=== PATIENT | male | born 1980 | race Caucasian/White ===

== ENCOUNTER 2021-04-13 05:14 | Emergency (ER) | payer MEDICAID ==
[~2021-04-13] VITALS: Ht 167.6 cm; Wt 77.3 kg
[~2021-04-13 05:14] MED LIST: ASCOL; CIPR500T87 PO; DICY10CA53 PO; MESA800T2 PO; METR500T; ONDA4TAB7 PO; PANT40TA3 PO; PRED5TAB PO; SERT25TA PO; TRAZ-175 PO
--- NOTE | 2021-04-13 05:15 | NUR ---
PT BIBA FROM HOME, PT COMPLAINING OF ABDOMINAL PAIN ASSOCIATTED WITH N/V, PT STATES HE IS HAVING 10/10 PAIN, PT NON COMPLIANT WITH DISEASE PROCESS, PT STATES THIS HAS BEEN GOING ON FOR 4 DAYS NOW, PT AMBULATED TO THE ROOM, PT HOLDING HIS STOMACH AND HUNCHED OVER WHILE WALKING
[2021-04-13] MEDS ORDERED: FAMOTIDINE 20 MG/2 ML IVPush ONE (05:30)
[2021-04-13] MEDS ORDERED: SODIUM CHLORIDE 0.9% 1,000ML IVBOLUS ONE (05:30)
[2021-04-13] MEDS ORDERED: SODIUM CHLORIDE FLUSH 10ML SYR IVF ONE (05:30)
[2021-04-13] MEDS ORDERED: ONDANSETRON 2MG/ML, 2ML IVPush ONE (05:30)
[2021-04-13] MEDS ORDERED: FAMOTIDINE 20 MG/2 ML ONE (05:34)
[2021-04-13] MEDS ORDERED: ONDANSETRON 2MG/ML, 2ML ONE (05:34)
[2021-04-13] MEDS ORDERED: MORPHINE SULFATE 4 MG/ML, 1ML ONE ×2 (05:34→06:05)
[2021-04-13] MEDS: MORPHINE SULFATE 4 MG/ML, 1ML IVPush PRN ×2 (05:36→06:07)
[2021-04-13 05:58] LABS: BASOPHILS % (AUTO) 1 % (0-1); EOSINOPHILS % (AUTO) 1 % (1-7); LYMPHOCYTES % (AUTO) 26 % (22-44); MEAN CORPUSCULAR HEMOGLOBIN 28.4 pg (27.5-34.5); MEAN CORPUSCULAR HGB CONC 33.6 g/dL (33.2-36.2); MEAN PLATELET VOLUME 7.3 fL (7.4-10.4); MONOCYTES % (AUTO) 9 % (2-9); NEUTROPHILS % (AUTO) 63 % (42-75); PLATELET COUNT 390 x10^3/uL (130-400); RED BLOOD COUNT 5.18 x10^6/uL (4.38-5.82); RED CELL DISTRIBUTION WIDTH 14.5 % (9.4-14.8)
[2021-04-13 06:06] LABS: ALANINE AMINOTRANSFERASE 21 U/L (12-78); ALBUMIN 3.3 g/dL (3.4-5.0); ANION GAP 6 mmol/L (5-15); CALCIUM 9.3 mg/dL (8.5-10.1); CHLORIDE 107 mmol/L (98-107); CREATININE 0.99 mg/dL (0.7-1.3)
--- NOTE | 2021-04-13 06:06 | NUR ---
REPORT GIVEN TO NICKIE QUAN
[2021-04-13 06:07] LABS: ALKALINE PHOSPHATASE 90 U/L (45-117); BILIRUBIN,TOTAL 0.5 mg/dL (0.2-1.0); TOTAL PROTEIN 7.3 g/dL (6.4-8.2)
[2021-04-13] MEDS ORDERED: KETOROLAC 30 MG/1 ML IVPush ONE (07:00)
[2021-04-13 07:06] VITALS: BP 119/78
== END 2021-04-13 07:08 | disposition home or self-care (01) ==
LOC: ED 06:28
DX: R10.84 Generalized abdominal pain (principal); K59.00 Constipation, unspecified; Z87.19 Personal history of other diseases of the digestive system; R94.31 Abnormal electrocardiogram [ECG] [EKG]; K21.9 Gastro-esophageal reflux disease without esophagitis; Z90.89 Acquired absence of other organs; Z90.49 Acquired absence of other specified parts of digestive tract
CPT/HCPCS: 36415; 74022; 80053; 83605; 83690; 85025; 93005; 96361; 96374; 96375; 96376; 99285; J2270; J2405; J7030

== ENCOUNTER 2021-04-18 13:25 | Emergency (ER) | payer MEDICAID ==
[~2021-04-18] VITALS: Ht 167.6 cm; Wt 77.5 kg
[2021-04-18] MEDS ORDERED: ONDANSETRON 2MG/ML, 2ML ONE (13:57)
[2021-04-18] MEDS ORDERED: MORPHINE SULFATE 4 MG/ML, 1ML ONE ×2 (13:58→15:22)
[2021-04-18] MEDS ORDERED: FAMOTIDINE 20 MG/2 ML ONE (13:58)
[2021-04-18 14:02] LABS: BASOPHILS % (AUTO) 1 % (0-1); EOSINOPHILS % (AUTO) 1 % (1-7); LYMPHOCYTES % (AUTO) 24 % (22-44); MEAN CORPUSCULAR HEMOGLOBIN 28.2 pg (27.5-34.5); MEAN PLATELET VOLUME 7.4 fL (7.4-10.4); MONOCYTES % (AUTO) 10 % (2-9); NEUTROPHILS % (AUTO) 65 % (42-75); PLATELET COUNT 338 x10^3/uL (130-400); RED BLOOD COUNT 5.01 x10^6/uL (4.38-5.82)
[2021-04-18] MEDS: MORPHINE SULFATE 4 MG/ML, 1ML IVPush PRN ×2 (14:02→15:24)
--- NOTE | 2021-04-18 14:09 | NUR ---
THIS IS A 40 YO M BIB EMS FROM HOME W/ C/O BILAT UPPR QUAD ABD PAIN, N/V/D X24 HOURS. PT REPORTS HX OF CHRONS. 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 PER EMS PT RECEIVED 100MCG FENTANYL, 4MG ZOFRAN AND 500ML NS (DC UPON ARRIVAL). PT MEDICATED PER EMAR. PROVIDED URINAL AND EDUCATED ON NEED FOR SAMPLE. RESTING ON GURNEY W/ CALL LIGHT IN REACH, RESP EVEN AND UNLABORED, NADN.
[2021-04-18 14:11] LABS: ALANINE AMINOTRANSFERASE 16 U/L (12-78); ALBUMIN 2.9 g/dL (3.4-5.0); ANION GAP 7 mmol/L (5-15); CALCIUM 8.4 mg/dL (8.5-10.1); CHLORIDE 110 mmol/L (98-107); CREATININE 0.98 mg/dL (0.7-1.3)
[2021-04-18 14:13] LABS: ALKALINE PHOSPHATASE 96 U/L (45-117); BILIRUBIN,TOTAL 0.2 mg/dL (0.2-1.0); TOTAL PROTEIN 6.8 g/dL (6.4-8.2)
[2021-04-18] MEDS ORDERED: FAMOTIDINE 20 MG/2 ML IVPush ONE (14:30)
[2021-04-18] MEDS ORDERED: ONDANSETRON 2MG/ML, 2ML IVPush ONE (14:30)
[2021-04-18] MEDS ORDERED: SODIUM CHLORIDE 0.9% 1,000ML IVBOLUS ONE (14:30)
[2021-04-18] MEDS ORDERED: OMNIPAQUE 350 MG/ML, 100ML BOTTLE ONE (15:05)
[2021-04-18 15:14] LABS: MICROSCOPIC NOT IND
[2021-04-18 15:56] VITALS: BP 116/75
--- NOTE | 2021-04-18 16:12 | NUR ---
Patient/Caregiver given discharge instructions and they have confirmed that they understand the instructions. Patient ambulatory with steady gait.
--- NOTE | 2021-04-18 16:12 | NUR ---
Provide patient taxi cab voucher patient.
== END 2021-04-18 16:14 | disposition home or self-care (01) ==
LOC: ED 14:26
DX: K52.9 Noninfective gastroenteritis and colitis, unspecified (principal)
CPT/HCPCS: 36415; 74177; 80053; 81003; 83690; 85025; 96361; 96374; 96375; 96376; 99285; J2270; J2405; J7030; Q9967

== ENCOUNTER 2021-04-20 02:43 | Emergency (ER) | payer MEDICAID ==
[~2021-04-20] VITALS: Ht 172.7 cm; Wt 90.0 kg
[2021-04-20] MEDS ORDERED: SODIUM CHLORIDE FLUSH 10ML SYR IVF ONE (03:00)
[2021-04-20] MEDS ORDERED: ONDANSETRON 2MG/ML, 2ML IVPush ONE (03:00)
--- NOTE | 2021-04-20 03:03 | NUR ---
xray delay: pt stated unable to perform exam till medicated
[2021-04-20] MEDS ORDERED: ONDANSETRON 2MG/ML, 2ML ONE (03:06)
[2021-04-20] MEDS ORDERED: MORPHINE SULFATE 4 MG/ML, 1ML ONE ×2 (03:07→04:09)
[2021-04-20] MEDS: MORPHINE SULFATE 4 MG/ML, 1ML IVPush PRN ×2 (03:09→04:13)
--- NOTE | 2021-04-20 03:13 | NUR ---
PT. MEDICATED PER OCT FOR 03/28 PAIN.
[2021-04-20 03:15] LABS: BASOPHILS % (AUTO) 0 % (0-1); EOSINOPHILS % (AUTO) 1 % (1-7); LYMPHOCYTES % (AUTO) 27 % (22-44); MEAN CORPUSCULAR HEMOGLOBIN 28.3 pg (27.5-34.5); MEAN CORPUSCULAR HGB CONC 33.1 g/dL (33.2-36.2); MEAN PLATELET VOLUME 7.3 fL (7.4-10.4); MONOCYTES % (AUTO) 9 % (2-9); NEUTROPHILS % (AUTO) 63 % (42-75); PLATELET COUNT 295 x10^3/uL (130-400); RED BLOOD COUNT 4.86 x10^6/uL (4.38-5.82); RED CELL DISTRIBUTION WIDTH 15.2 % (9.4-14.8)
[2021-04-20 03:31] LABS: ALANINE AMINOTRANSFERASE 22 U/L (12-78); ALBUMIN 2.7 g/dL (3.4-5.0); ANION GAP 5 mmol/L (5-15); CALCIUM 8.7 mg/dL (8.5-10.1); CHLORIDE 107 mmol/L (98-107); CREATININE 0.97 mg/dL (0.7-1.3)
[2021-04-20 03:33] LABS: ALKALINE PHOSPHATASE 94 U/L (45-117); BILIRUBIN,TOTAL 0.2 mg/dL (0.2-1.0); TOTAL PROTEIN 6.6 g/dL (6.4-8.2)
--- NOTE | 2021-04-20 03:53 | NUR ---
PT. STATES "THE PAIN WENT DOWN FOR A MINUTE BUT IT'S BACK UP TO AN 8 NOW." PT. UNABLE TO PROVIDE URINE SAMPLE AT THIS TIME.
--- NOTE | 2021-04-20 04:13 | NUR ---
2ND DOSE OF MORPHINE ADMIN FOR CONTINUED PAIN. PT. ABLE TO URINATE PRIOR TO PAIN MEDS.
[2021-04-20 04:22] LABS: MICROSCOPIC NOT IND
--- NOTE | 2021-04-20 05:05 | NUR ---
PT. RESTING ON GURNEY WITH EYES CLOSED; WOKE FROM SLEEP TO VERBAL. PT. REPORTS PAIN CONTINUES AT 8/10. "IT WON'T GO DOWN PAST AN 8 FOR SOME REASON." CHART UP FOR RECHECK BY ERP.
[2021-04-20 06:06] VITALS: BP 122/77
--- NOTE | 2021-04-20 06:12 | NUR ---
PT. BECAME VERY VERBALLY AGRESSIVE WITH THIS RN UPON DISCUSSING D/C PAPERWORK. "THERE IS NO WAY I AM CONSTIPATED I HAVE BEEN GOING EVERY DAY. THIS IS BULL SHIT AND I AM JUST GOING TO END UP RIGHT BACK IN HERE." PT. WALKED TO D/C DESK AND SHOWN HOW TO CALL [facility] FOR [facility] D/C HOME. MD WAS ALREADY IN TO DISCUSS D/C PLAN WITH PT.
== END 2021-04-20 06:13 | disposition home or self-care (01) ==
LOC: ED 03:41
DX: K59.00 Constipation, unspecified (principal); R10.84 Generalized abdominal pain; F17.210 Nicotine dependence, cigarettes, uncomplicated
CPT/HCPCS: 36415; 74022; 80053; 81003; 83690; 85025; 96374; 96375; 96376; 99285; 99406; J2270; J2405

== ENCOUNTER 2021-04-27 15:25 | Emergency (ER) | payer MEDICAID ==
[~2021-04-27] VITALS: Ht 167.6 cm; Wt 77.5 kg
--- NOTE | 2021-04-27 15:57 | NUR ---
THIS IS A 40 YO M BIB EMS FROM HOME W/ C/O ABD PAIN STARTING AT 0600AM THIS MORNING. PT REPORTS HX OF CHRONS. PER EMS PT MEDICATED W/ 7MG MORPHINE PATIENT COORDINATOR FRONT DESK. PIV PATIENT COORDINATOR FRONT DESK. PT RESTING ON GURNEY W/ CALL LIGHT IN REACH AND SIDE RAILS UPX2. RESP EVEN AND UNLABORED, NADN. AWAITING ED EVAL.
[2021-04-27] MEDS ORDERED: MORPHINE SULFATE 4 MG/ML, 1ML ONE ×2 (16:19→17:18)
[2021-04-27] MEDS ORDERED: ONDANSETRON 2MG/ML, 2ML ONE (16:19)
[2021-04-27] MEDS ORDERED: FAMOTIDINE 20 MG TABLET ONE (16:19)
[2021-04-27] MEDS: MORPHINE SULFATE 4 MG/ML, 1ML IVPush PRN ×2 (16:25→17:19)
[2021-04-27] MEDS ORDERED: SODIUM CHLORIDE FLUSH 10ML SYR IVF ONE (16:30)
[2021-04-27] MEDS ORDERED: SODIUM CHLORIDE 0.9% 1,000ML IVBOLUS ONE (16:30)
[2021-04-27] MEDS ORDERED: ONDANSETRON 2MG/ML, 2ML IVPush ONE (16:30)
--- NOTE | 2021-04-27 16:33 | NUR ---
PT MEDICATED PER EMAR.
[2021-04-27 16:46] LABS: BASOPHILS % (AUTO) 1 % (0-1); EOSINOPHILS % (AUTO) 1 % (1-7); LYMPHOCYTES % (AUTO) 23 % (22-44); MEAN CORPUSCULAR HEMOGLOBIN 28.3 pg (27.5-34.5); MEAN CORPUSCULAR HGB CONC 32.7 g/dL (33.2-36.2); MEAN PLATELET VOLUME 7.8 fL (7.4-10.4); MONOCYTES % (AUTO) 9 % (2-9); NEUTROPHILS % (AUTO) 67 % (42-75); PLATELET COUNT 293 x10^3/uL (130-400); RED BLOOD COUNT 4.98 x10^6/uL (4.38-5.82)
[2021-04-27 16:49] LABS: ALBUMIN 2.9 g/dL (3.4-5.0); CALCIUM 8.5 mg/dL (8.5-10.1)
[2021-04-27 16:52] LABS: ALANINE AMINOTRANSFERASE 19 U/L (12-78); ALKALINE PHOSPHATASE 87 U/L (45-117); BILIRUBIN,TOTAL 0.3 mg/dL (0.2-1.0); CREATININE 0.86 mg/dL (0.7-1.3); TOTAL PROTEIN 6.6 g/dL (6.4-8.2)
[2021-04-27 16:58] LABS: ANION GAP 4 mmol/L (5-15); CHLORIDE 109 mmol/L (98-107)
--- NOTE | 2021-04-27 18:00 | NUR ---
ALL TESTS RESULTED. PT IS UP FOR RECHECK AT THIS TIME.
--- NOTE | 2021-04-27 19:00 | NUR ---
RECEIVED REPORT FROM ZEINA QUAN. ASSUMING CARE AT THIS TIME. CHART UP FOR RECHECK.
[2021-04-27 20:43] VITALS: BP 128/72
== END 2021-04-27 20:45 | disposition home or self-care (01) ==
LOC: ED 19:50
DX: K50.10 Crohn's disease of large intestine without complications (principal); K21.9 Gastro-esophageal reflux disease without esophagitis; F17.210 Nicotine dependence, cigarettes, uncomplicated; Z88.5 Allergy status to narcotic agent; Z88.6 Allergy status to analgesic agent
CPT/HCPCS: 36415; 80053; 83690; 85025; 96361; 96374; 96375; 96376; 99284; J2270; J2405; J7030; J7512